=== PATIENT | female | born 1955 | race Caucasian/White ===

== ENCOUNTER → 2016-11-04 | Outpatient (CLI) | payer OTHER | LOC: FIMAGING 09:08 | PROVIDERS: ATTEND Obstetrics & Gynecology Gynecology | DX: Z12.39 Encounter for other screening for malignant neoplasm of breast (principal); N64.4 Mastodynia | CPT/HCPCS: G0204 ==

== ENCOUNTER → 2017-04-11 | Outpatient (CLI) | payer OTHER | LOC: BMCIMAGING 10:22 | PROVIDERS: ATTEND Podiatrist Foot & Ankle Surgery | DX: S92.151A Displaced avulsion fracture (chip fracture) of right talus, initial encounter for closed fracture (principal); M77.31 Calcaneal spur, right foot ==

== ENCOUNTER → 2017-04-27 | Outpatient (CLI) | payer OTHER | LOC: BMCIMAGING 09:55 | PROVIDERS: ATTEND Family Medicine | DX: Z13.820 Encounter for screening for osteoporosis (principal); M85.80 Other specified disorders of bone density and structure, unspecified site; E03.9 Hypothyroidism, unspecified; K50.90 Crohn's disease, unspecified, without complications; N28.9 Disorder of kidney and ureter, unspecified ==

== ENCOUNTER → 2017-06-16 | Outpatient (CLI) | payer OTHER | LOC: BMCIMAGING 14:45 | PROVIDERS: ATTEND Family Medicine | DX: Z13.820 Encounter for screening for osteoporosis (principal); E03.9 Hypothyroidism, unspecified; K50.90 Crohn's disease, unspecified, without complications ==

== ENCOUNTER → 2017-11-08 | Outpatient (CLI) | payer OTHER | LOC: FIMAGING 10:15 | PROVIDERS: ATTEND Family Medicine | DX: Z12.31 Encounter for screening mammogram for malignant neoplasm of breast (principal); Z80.3 Family history of malignant neoplasm of breast ==

== ENCOUNTER → 2018-03-07 | Outpatient (CLI) | payer OTHER | LOC: FIMAGING 18:44 | PROVIDERS: ATTEND Internal Medicine | DX: M48.061 Spinal stenosis, lumbar region without neurogenic claudication (principal); M51.36 Other intervertebral disc degeneration, lumbar region; M51.35 Other intervertebral disc degeneration, thoracolumbar region; M46.97 Unspecified inflammatory spondylopathy, lumbosacral region ==

== ENCOUNTER → 2018-05-10 | Outpatient (CLI) | payer OTHER | LOC: FIMAGING 14:37 | PROVIDERS: ATTEND Physical Medicine & Rehabilitation Neuromuscular Medicine | DX: M43.16 Spondylolisthesis, lumbar region (principal); M47.896 Other spondylosis, lumbar region; M53.86 Other specified dorsopathies, lumbar region ==

== ENCOUNTER 2018-08-05 17:31 | Emergency (ER) | payer OTHER | END 2018-08-05 17:35 | disposition left against medical advice (07) | DX: Z53.21 Procedure and treatment not carried out due to patient leaving prior to being seen by health care provider (principal) ==

== ENCOUNTER → 2018-09-05 | Outpatient (CLI) | payer OTHER | LOC: FIMAGING 09:30 | PROVIDERS: ATTEND Obstetrics & Gynecology | DX: N95.0 Postmenopausal bleeding (principal) ==

== ENCOUNTER → 2018-10-17 | Outpatient (CLI) | payer OTHER | LOC: BMCIMAGING 09:46 | PROVIDERS: ATTEND Podiatrist Foot & Ankle Surgery | DX: Z09 Encounter for follow-up examination after completed treatment for conditions other than malignant neoplasm (principal) ==

== ENCOUNTER → 2018-11-19 | Outpatient (CLI) | payer OTHER ==
[~2018-11-19] MED LIST: GADOBUTROL 10 ML VIAL IVP ONE
== END ==
LOC: FIMAGING 10:41
PROVIDERS: ATTEND Internal Medicine Infectious Disease
DX: L03.116 Cellulitis of left lower limb (principal); R93.7 Abnormal findings on diagnostic imaging of other parts of musculoskeletal system; Z98.890 Other specified postprocedural states
CPT/HCPCS: A9585

== ENCOUNTER 2018-12-17 20:45 | Emergency (ER) | payer OTHER ==
[2018-12-17] MEDS ORDERED: NS 2,400 ML IV ONE (21:38)
[2018-12-17 21:46] LABS: PLATELET COUNT 188 10^3/uL (150-400)
[2018-12-17 21:54] LABS: PROTIME(PATIENT) 12.8 SEC (12.0-15.0)
--- NOTE | 2018-12-17 21:54 | EDPHY ---
H & P Time Seen by Provider: 12/17/18 21:18 HPI/ROS: CHIEF COMPLAINT: Chills HISTORY OF PRESENT ILLNESS: [place] well until around noon today when she had decreased appetite and felt chills or temperature at 5:30 p.m. Was 95.6 at 6:30 p.m. Was 99.1. She has diffuse joint aches and chills and went to urgent care was referred here. She had 3 normal bowel movements today and had an episode of nausea and vomiting x1 little bit of abdominal bloating. Of note she did have surgery on her left foot on September 24 and then again on November 30 for a bunionectomy and subsequent infection, but has been off antibiotics since approximately December 05. She did notice a little spot of blood today in the dressing which she thought was unusual. Her foot hurts a little bit but no change in that over the last couple of weeks. Patient tells me she went to [facility] and had an influenza swab that was negative and was sent here. I can't find the results of the influenza anywhere in our computer system. REVIEW OF SYSTEMS: Eye: no change in vision ENT: no sore throat Cardiac: no chest pain or syncope Pulmonary: no cough or SOB Abdomen: HPI no diarrhea, no abdominal pain but a little bit of bloating Musculoskeletal: Foot as in HPI, joint aches Skin: no rash, no foot incision redness Neuro: Mild headache but no neck stiffness Constitutional: Fever and chills : no urinary symptoms A comprehensive 10 point review of systems is otherwise negative aside from elements mentioned in the history of present illness. PAST MEDICAL HISTORY: Consultation dated 11/12/2018 personally reviewed. Includes Crohn's disease, fibromyalgia, hypertension, hypothyroid, Sjogren's, anemia. Cholecystectomy and left lower extremity bunionectomy Social history: Current nonsmoker General Appearance: Alert and conversant, cooperative. Eyes: No scleral icterus. ENT, Mouth: Normal mucous membranes. No pharyngeal erythema or exudate. Respiratory: Normal respiratory effort, breath sounds equal, lungs are clear to auscultation. Cardiovascular: Regular rate and rhythm. Gastrointestinal: Abdomen is soft and non tender. No rebound or guarding. Bowel sounds present. Neurological: Alert, face symmetric, normal motor and sensory in extremities. Skin: Warm and dry, no rashes. Skin examined over the left lateral foot wound is not red, no pus or dehiscence, minimally tender to palpation. Appears a normally healing surgical wound with sutures in place. Musculoskeletal: No peripheral edema. No neck stiffness. Psychiatric: Not agitated. Emergency Department course/MDM: Presents with chills, concern for possible occult bacterial infection, influenza , osteomyelitis, bowel obstruction, UTI, pneumonia. Plan for CBC, CRP and sed rate, 3 way abdomen, and urinalysis, influenza testing. 2254: Results discussed with the patient. She does not have elevated inflammatory markers including normal WBC, sedimentation rate and CRP. She is having bowel movements and says this does not feel like her previous bowel obstruction. She is not tender to palpation which is different than her previous bowel obstruction. She is negative urinalysis and no evidence of pneumonia on chest x-ray. Influenza is pending. I would treat her if it turns out that it is positive. I discussed CT scanning with the patient but she declined and I think that is reasonable as I think that viral syndrome is much more likely than bowel obstruction. She states she is fine with going home with symptomatic treatment and observation, which I think is reasonable. Smoking Status: Former smoker Constitutional: Initial Vital Signs Temperature (C) 36.7 C 12/17/18 20:47 Heart Rate 82 12/17/18 20:47 Respiratory Rate 18 12/17/18 20:47 Blood Pressure 146/84 H 12/17/18 20:47 O2 Sat (%) 98 12/17/18 20:47 O2 Delivery Mode Room Air Allergies/Adverse Reactions: lamotrigine [From Lamictal] Allergy (Unknown, Verified 01/08/11 01:55) Rash Sulfa (Sulfonamide Antibiotics) Allergy (Unknown, Verified 01/08/11 01:55) Anaphylaxis hyoscyamine sulfate [From Levbid] Allergy (Verified 08/31/13 16:33) scopolamine Allergy (Verified 12/17/18 20:50) MOTION SICKNESS PATCH Allergy (Unknown, Uncoded 01/08/11 01:56) Anaphylaxis Home Medications: Medication Instructions Recorded Calcium Carbonate [Oyster Shell 250 mg PO DAILY 04/07/13 Calcium 500 mg (OTC)] Cholecalciferol Vit D3 [Vitamin D3 3,000 units PO DAILY 04/07/13 1000 units (OTC)] Fexofenadine HCl [Landy] 180 mg PO DAILY 04/07/13 Herbals/Supplements -Info Only 1 each PO AD 04/07/13 Levothyroxine [Synthroid 75 mcg 75 mcg PO HS 04/07/13 (RX)] Metoprolol Succinate Xr [Toprol Xl 25 mg PO HS 04/07/13 25 mg (RX)] VALSARTAN/HYDROCHLOROTHIAZIDE 2 each PO DAILY 04/07/13 [Diovan Hct 160-12.5 Mg Tab] Vitamin B Complex [Vitamin B 1 each PO DAILY 04/07/13 Complex (OTC)] Pentasa 250 mg (RX) 03/24/15 Deplin-Algal Oil 15 mg Capsule 06/19/16 LORazepam 06/19/16 Valtrex 06/19/16 traMADol 06/19/16 Medical Decision Making - Diagnostics Imaging Results: Imaging Impressions Abdomen X-Ray 12/17/18 21:39 Impression: 1. Negative chest. 2. The abdomen is negative for acute localizing features. Imaging: I viewed and interpreted images myself - Data Points Laboratory Results: Laboratory Results 12/17/18 21:30 12/17/18 21:30 12/17/18 12/17/18 12/17/18 22:24 21:46 21:30 WBC RBC Hgb Hct MCV MCH MCHC RDW Plt Count MPV Neut % (Auto) Lymph % (Auto) [place] % (Auto) Eos % (Auto) Baso % (Auto) Nucleat RBC Rel Count Absolute Neuts (auto) Absolute Lymphs (auto) Absolute Monos (auto) Absolute Eos (auto) Absolute Basos (auto) Absolute Nucleated RBC Immature Gran % Immature Gran # RBC/WBC/PLT Morphology Platelet Estimate ESR PT INR APTT VBG Lactic Acid 0.9 mmol/L mmol/L (0.7-2.1) Sodium Potassium Chloride Carbon Dioxide Anion Gap BUN Creatinine Estimated GFR Glucose Calcium Total Bilirubin C-Reactive Protein 7.3 mg/L mg/L (<10.0) Urine Color Urine Appearance Urine pH Ur Specific [place] Urine Protein Urine Ketones Urine Blood Urine Nitrate Urine Bilirubin Urine Urobilinogen Ur Leukocyte Esterase Urine Glucose Nasal Influenza A PCR NEGATIVE FOR FLU A (NEGATIVE) Nasal Influenza B PCR NEGATIVE FOR FLU B (NEGATIVE) 12/17/18 12/17/18 12/17/18 21:30 21:30 21:30 WBC 6.05 10^3/uL 10^3/uL (3.80-9.50) RBC 4.11 10^6/uL L 10^6/uL (4.18-5.33) Hgb 12.9 g/dL g/dL (12.6-16.3) Hct 38.7 % % (38.0-47.0) MCV 94.2 fL fL (81.5-99.8) MCH 31.4 pg pg (27.9-34.1) MCHC 33.3 g/dL g/dL (32.4-36.7) RDW 12.4 % % (11.5-15.2) Plt Count 188 10^3/uL 10^3/uL (150-400) MPV 9.3 fL fL (8.7-11.7) Neut % (Auto) 89.3 % H % (39.3-74.2) Lymph % (Auto) 5.0 % L % (15.0-45.0) [place] % (Auto) 4.6 % % (4.5-13.0) Eos % (Auto) 0.5 % L % (0.6-7.6) Baso % (Auto) 0.3 % % (0.3-1.7) Nucleat RBC Rel Count 0.0 % % (0.0-0.2) Absolute Neuts (auto) 5.40 10^3/uL 10^3/uL (1.70-6.50) Absolute Lymphs (auto) 0.30 10^3/uL L 10^3/uL (1.00-3.00) Absolute Monos (auto) 0.28 10^3/uL L 10^3/uL (0.30-0.80) Absolute Eos (auto) 0.03 10^3/uL 10^3/uL (0.03-0.40) Absolute Basos (auto) 0.02 10^3/uL 10^3/uL (0.02-0.10) Absolute Nucleated RBC 0.00 10^3/uL 10^3/uL (0-0.01) Immature Gran % 0.3 % % (0.0-1.1) Immature Gran # 0.02 10^3/uL 10^3/uL (0.00-0.10) RBC/WBC/PLT Morphology TNP Platelet Estimate TNP ESR 12 MM/HR MM/HR (0-30) PT 12.8 SEC SEC (12.0-15.0) INR 1.00 (0.83-1.16) APTT 25.5 SEC SEC (23.0-38.0) VBG Lactic Acid Sodium 132 mEq/L L mEq/L (135-145) Potassium 4.1 mEq/L mEq/L (3.5-5.2) Chloride 101 mEq/L mEq/L (97-110) Carbon Dioxide 22 mEq/l mEq/l (22-31) Anion Gap 9 mEq/L mEq/L (6-14) BUN 20 mg/dL mg/dL (7-23) Creatinine 0.9 mg/dL mg/dL (0.6-1.0) Estimated GFR > 60 Glucose 119 mg/dL H mg/dL (70-100) Calcium 9.1 mg/dL mg/dL (8.5-10.4) Total Bilirubin 0.7 mg/dL mg/dL (0.1-1.4) C-Reactive Protein Urine Color Urine Appearance Urine pH Ur Specific [place] Urine Protein Urine Ketones Urine Blood Urine Nitrate Urine Bilirubin Urine Urobilinogen Ur Leukocyte Esterase Urine Glucose Nasal Influenza A PCR Nasal Influenza B PCR 12/17/18 10:24 WBC RBC Hgb Hct MCV MCH MCHC RDW Plt Count MPV Neut % (Auto) Lymph % (Auto) [place] % (Auto) Eos % (Auto) Baso % (Auto) Nucleat RBC Rel Count Absolute Neuts (auto) Absolute Lymphs (auto) Absolute Monos (auto) Absolute Eos (auto) Absolute Basos (auto) Absolute Nucleated RBC Immature Gran % Immature Gran # RBC/WBC/PLT Morphology Platelet Estimate ESR PT INR APTT VBG Lactic Acid Sodium Potassium Chloride Carbon Dioxide Anion Gap BUN Creatinine Estimated GFR Glucose Calcium Total Bilirubin C-Reactive Protein Urine Color YELLOW Urine Appearance HAZY Urine pH 6.0 (5.0-7.5) Ur Specific [place] 1.011 (1.002-1.030) Urine Protein NEGATIVE (NEGATIVE) Urine Ketones TRACE H (NEGATIVE) Urine Blood NEGATIVE (NEGATIVE) Urine Nitrate NEGATIVE (NEGATIVE) Urine Bilirubin NEGATIVE (NEGATIVE) Urine Urobilinogen NEGATIVE EU EU (0.2-1.0) Ur Leukocyte Esterase NEGATIVE (NEGATIVE) Urine Glucose NEGATIVE (NEGATIVE) Nasal Influenza A PCR Nasal Influenza B PCR Medications Given: Discontinued Medications Sodium Chloride (Ns) 2,400 mls @ 4,800 mls/hr 30 ml/kg infuse over 30 min ( 2400 ml) IV EDNOW ONE PRN Reason: Protocol Stop: 12/17/18 22:07 Last Admin: 12/17/18 21:47 Dose: 2,400 mls Departure - Departure Disposition: Home, Routine, Self-Care Clinical Impression: Viral syndrome Condition: Good Instructions: Viral Syndrome (ED) Additional Instructions: Call tomorrow for results of influenza testing. Normal urinalysis. No evidence of bowel obstruction or pneumonia on x-ray. Referrals: Dilip Lantigua, [Primary Care Provider] - As per Instructions
[2018-12-17 22:31] VITALS: BP 177/101
== END 2018-12-17 23:14 | disposition home or self-care (01) ==
DX: B34.9 Viral infection, unspecified (principal); E86.9 Volume depletion, unspecified

== ENCOUNTER → 2019-01-02 | Outpatient (CLI) | payer OTHER | LOC: FIMAGING 11:18 | PROVIDERS: ATTEND Family Medicine | DX: Z12.31 Encounter for screening mammogram for malignant neoplasm of breast (principal); Z80.3 Family history of malignant neoplasm of breast ==

== ENCOUNTER → 2019-01-31 | Outpatient (CLI) | payer OTHER | LOC: EMCIMAGING 07:45 ==

== ENCOUNTER 2019-02-01 05:44 | Day surgery (SDC) | payer OTHER | END 2019-02-01 09:55 | disposition home or self-care (01) | LOC: FSGY 05:44 ==

== ENCOUNTER 2019-02-01 15:20 | Observation (INO) | payer OTHER | END 2019-02-03 16:09 | disposition home or self-care (01) | LOC: F2W 19:00 ==

== ENCOUNTER → 2019-02-12 | Day surgery (SDC) | payer OTHER | LOC: FIMAGING 14:24 ==

== ENCOUNTER → 2019-02-21 | Outpatient (CLI) | payer OTHER | LOC: FIMAGING 14:59 ==